=== PATIENT | female | born 1940 | race Caucasian/White ===

== ENCOUNTER → 2018-01-27 | Outpatient (CLI) | payer MEDICARE, OTHER ==
[~2018-01-27] MED LIST: AMITIZA8 MCG PO; ASPIR 8181 MG PO; CENTRUM SILVER1 EAC1 PO; CENTRUM SILVER1 EAC3 PO; CITALOPRAM HBR20 MG PO; CITRACAL + D E1 EACH PO; CITRACAL D + H1 EACH PO; CLARITIN10 MG PO; CO Q-10 100 MG1 EACH PO; CO Q-10200 MG PO; COSAMIN ASU CA1 EACH PO; CYANOCOBAL1000 MCG/M IM; DEXILANT60 MG PO; FISH OIL 1,0001 EAC1 PO; FISH OIL 1,0001 EAC2 PO; ISOSORBIDE MONO30 MG PO; LEVOTHYROXINE100 MCG PO; LIPITOR10 MG PO; LORATADINE10 MG PO; LOSARTAN-HCTZ1 EACH PO; LYRICA PO; LYRICA50 MG PO; METOPROLOL SUCC25 MG PO; METRONIDAZOLE70 GM TP; NAPROXEN500 MG PO; NEXIUM40 MG PO; NORCO 7.5-3251 EACH PO; NYSTATIN-TRIAMC15 G1 TD; PLAVIX75 MG PO; PREMARIN0.3 MG PO; TRICOR PO; TRICOR145 MG PO; VITAMIN D31000 UNIT PO; VITAMIN D32000 UNI1 PO; VITAMIN E100 UNI1 PO
--- NOTE | 2018-01-27 13:09 | Diagnostic Imaging Report ---
EXAMINATION: PA and lateral views of the chest. COMPARISON: None CLINICAL HISTORY: Cough, pneumonia DISCUSSION: Lines/tubes: None. Lungs: The lungs are well inflated and clear. No pneumonia or pulmonary edema. Pleura: There is no pleural effusion or pneumothorax. Heart and mediastinum: The cardiomediastinal silhouette is normal. Bones and soft tissues: No acute bony abnormalities. IMPRESSION: No acute cardiopulmonary abnormalities. Signed by: Dr. Arias Saucedo M.D. on 01/27/2018 1:05 PM
== END ==
LOC: RAD 12:13
PROVIDERS: ATTEND Internal Medicine
DX: J18.9 Pneumonia, unspecified organism (principal)
CPT/HCPCS: 71046

== ENCOUNTER 2018-10-07 14:34 | Observation (INO) | payer MEDICARE, OTHER ==
[~2018-10-07] VITALS: Ht 160 cm; Wt 88.0 kg
--- OUTSIDE RECORDS SUMMARY | 2018-10-07 14:38 | XMS REPORT | Continuity of Care Document ---
Author Author [employer] Address Unknown Phone Unavailable Care Team Providers Care Brineyard Supervisor Name Role Phone [employer] Unavailable Unavailable Problems Problem Status Onset Date Classification Date Reported Comments Source Abnormal EKG Active Problem 02/06/2018 Salvador Anderson Hypertensive heart disease without heart failure Active Problem 02/06/2018 Salvador Anderson Hypothyroidism Active Problem 02/06/2018 Salvador Anderson Degenerative joint disease of low back Active Problem 02/06/2018 Salvador Anderson Atherosclerosis of [place] coronary artery of [place] heart with angina pectoris Active Problem 02/06/2018 Salvador Anderson Patient unable to exercise Active Problem 02/06/2018 Salvador Anderson Stented coronary artery Active Problem 02/06/2018 Salvador Anderson Non morbid obesity due to excess calories Active Problem 02/06/2018 Salvador Anderson Edema of both legs Active Problem 02/06/2018 Salvador Anderson Encounter for pre-operative cardiovascular clearance Active Problem 02/06/2018 Salvador Anderson Hypercholesteremia Active Problem 02/06/2018 Salvador Anderson CAD in [place] artery Active Problem 02/06/2018 Salvador Anderson Exertional dyspnea Active Problem 02/06/2018 Salvador Anderson GERD Active Problem 02/06/2018 Salvador Anderson History of PTCA Active Problem 07/04/2015 Salvador Anderson Hypercholesteremia Active Problem 07/04/2015 Salvador Anderson Medications Medication Details Route Status Patient Instructions Ordering Provider Order Date Source Clopidogrel Bisulfate 1 tablet Orally Active 75 MG Orally daily Justin Anderson Metoprolol Succinate ER 1 tablet Orally Active 25 MG Orally Once a day Justin Anderson Allergies, Adverse Reactions, Alerts No Known Medication Allergies Immunizations No Data Provided for This Section Results No Data Provided for This Section Pathology Reports No Data Provided for This Section Diagnostic Reports No Data Provided for This Section Consultation Notes No Data Provided for This Section Discharge Summaries No Data Provided for This Section History and Physicals No Data Provided for This Section Vital Signs No Data Provided for This Section Encounters Location Location Details Encounter Type Encounter Number Reason For Visit Attending Provider ADM Date DC Date Status Source Salvador Anderson MD PA Unknown [id number] 07/03/2015 07/03/2015 Salvador Anderson Procedures No Data Provided for This Section Assessment and Plan No Data Provided for This Section Plan of Care No Data Provided for This Section Social History Social History Date Source Social History ElementQualifiersDate Reported Smoking . Status Never Smoker May 15, 2015 Alcohol Use No. May 15, 2015 Alcohol Screening: No. Did you have a drink containing alcohol in the past year?: No, Points: 0, Interpretation: Negative May 15, 2015 Marital Status: . May 15, 2015 Do you drink alcohol? No. 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
--- OUTSIDE RECORDS SUMMARY | 2018-10-07 14:39 | XMS REPORT ---
Author Author Salvador Anderson Organization [employer] Address Unknown Phone Unavailable Care Team Providers Care Welder Apprentice Name Role Phone Salvador Anderson CP Unavailable Encounters Encounter Location Date Unknown Salvador Anderson MD PA July 03, 2015 Problems Problem Type Condition ICD-9 Code Onset Dates Condition Status Problem Stented coronary artery Z95.5 Active Problem Hypothyroidism E03.9 Active Problem Non morbid obesity due to excess calories E66.09 Active Problem Exertional dyspnea R06.09 Active Problem History of PTCA Z98.61 Active Problem CAD in [place] artery I25.10 Active Problem Hypercholesteremia E78.0 Active Problem GERD (gastroesophageal reflux disease) K21.9 Active Problem Abnormal EKG R94.31 Active Problem Hypertensive heart disease without heart failure I11.9 Active Medications Medication Code System Code Instructions Start Date End Date Status Dosage Metoprolol Succinate ER MEDISPAN [address]-74 25 MG Orally Once a day Active 1 tablet Social History Social History Element Qualifiers Date Reported Smoking . Status Never Smoker May 15, 2015 Alcohol Use No. May 15, 2015 Alcohol Screening: No. Did you have a drink containing alcohol in the past year?: No, Points: 0, Interpretation: Negative May 15, 2015 Marital Status: . May 15, 2015 Do you drink alcohol? No. 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
--- OUTSIDE RECORDS SUMMARY | 2018-10-07 14:39 | XMS REPORT ---
Author Author Salvador Anderson Organization [employer] Address Unknown Phone Unavailable Care Team Providers Care Auto Body Estimator Name Role Phone Salvador Anderson CP Unavailable Allergies No Known Allergies Problems Problem Type Condition Code Onset Dates Condition Status Problem Abnormal EKG R94.31 Active Problem Hypertensive heart disease without heart failure I11.9 Active Problem Hypothyroidism E03.9 Active Problem Degenerative joint disease of low back M47.9 Active Problem Atherosclerosis of [place] coronary artery of [place] heart with angina pectoris I25.119 Active Problem Patient unable to exercise Z78.9 Active Problem Stented coronary artery Z95.5 Active Problem Non morbid obesity due to excess calories E66.09 Active Problem Edema of both legs R60.0 Active Problem Encounter for pre-operative cardiovascular clearance Z01.810 Active Problem Hypercholesteremia E78.00 Active Problem CAD in [place] artery I25.10 Active Problem Exertional dyspnea R06.09 Active Problem GERD (gastroesophageal reflux disease) K21.9 Active Medications No Known Medications Results No Known Results Summary Purpose [employer] Submission
--- OUTSIDE RECORDS SUMMARY | 2018-10-07 14:39 | XMS REPORT ---
Author Author Salvador Anderson Organization [employer] Address Unknown Phone Unavailable Care Team Providers Care Component Inspector Name Role Phone Salvador Anderson CP Unavailable Allergies No Known Allergies Problems Problem Type Condition Code Onset Dates Condition Status Problem Abnormal EKG R94.31 Active Problem Hypertensive heart disease without heart failure I11.9 Active Problem Hypothyroidism E03.9 Active Problem Degenerative joint disease of low back M47.9 Active Problem Atherosclerosis of [place] coronary artery of [place] heart with angina pectoris I25.119 Active Problem Patient unable to exercise Z78.9 Active Problem Stented coronary artery Z95.5 Active Problem Non morbid obesity due to excess calories E66.09 Active Problem Edema of both legs R60.0 Active Problem Encounter for pre-operative cardiovascular clearance Z01.810 Active Problem Hypercholesteremia E78.00 Active Problem CAD in [place] artery I25.10 Active Problem Exertional dyspnea R06.09 Active Assessment Atherosclerosis of [place] coronary artery of [place] heart with angina pectoris I25.119 Active Problem GERD (gastroesophageal reflux disease) K21.9 Active Medications Medication Code System Code Instructions Start Date End Date Status Dosage Clopidogrel Bisulfate [facility] [id number] 75 MG Orally daily Active 1 tablet Results No Known Results Summary Purpose [employer] Submission
[2018-10-07] MEDS ORDERED: ASPIRIN 81 MG CHEW TAB PO STA (14:53)
[2018-10-07] MEDS ORDERED: ONDANSETRON HCL INJ 2MG/ML 2ML 2 MG/ML VIAL IV STA (14:53)
[2018-10-07] MEDS ORDERED: MORPHINE SULFATE 2 MG/ML SYR 1ML IV STA (14:53)
[2018-10-07] MEDS ORDERED: NITROGLYCERIN 2% OINT 1 GM PKT TOP ONE (15:00)
[2018-10-07] MEDS ORDERED: MORPHINE SULFATE INJ 4 MG/ML INJ 1ML IV ONE (15:15)
[2018-10-07 15:32] LABS: BASOPHILS # (AUTO) 0.1 (0.0-0.1); BASOPHILS % 1.1 % (0.0-1.0); EOSINOPHILS # (AUTO) 0.3 (0.0-0.4); EOSINOPHILS % 2.9 % (0.0-6.0); HEMOGLOBIN 14.5 g/dL (12.0-16.0); LYMPHOCYTES # (AUTO) 3.2 (1.0-3.2); LYMPHOCYTES % 33.6 % (18.0-39.1); MEAN CORPUSCULAR HEMOGLOBIN 28.2 pg (28-32); MEAN CORPUSCULAR VOLUME 85.6 fL (81-99); MONOCYTES # (AUTO) 0.6 (0.2-0.8); MONOCYTES % 6.6 % (4.4-11.3); NEUTROPHILS # (AUTO) 5.2 (2.1-6.9); NEUTROPHILS % 55.4 % (38.7-80.0); PLATELET COUNT 262 x10e3/uL (140-360); RED BLOOD COUNT 5.14 x10e6/uL (3.6-5.1); RED CELL DISTRIBUTION WIDTH 13.1 % (11.7-14.4)
[2018-10-07 15:42] LABS: INR 0.86; PROTHROMBIN TIME 12.2 seconds (11.9-14.5)
[2018-10-07 15:43] LABS: PARTIAL THROMBOPLASTIN TIME 29.1 seconds (23.8-35.5)
[2018-10-07 15:44] LABS: BILIRUBIN,URINE NEGATIVE (NEGATIVE); CLARITY,URINE CLEAR (CLEAR); COLOR,URINE YELLOW (YELLOW); KETONES,URINE NEGATIVE (NEGATIVE); LEUKOCYTE ESTERASE ,URINE SMALL (NEGATIVE); NITRITE,URINE NEGATIVE (NEGATIVE); PROTEIN,URINE DIPSTICK NEGATIVE (NEGATIVE); URINE UROBILINOGEN 0.2 mg/dL (0.2 - 1)
[2018-10-07 15:52] LABS: ALANINE AMINOTRANSFERASE 29 IU/L (0-55); ALBUMIN 3.9 g/dL (3.5-5.0); ALBUMIN/GLOBULIN RATIO 1.4 (0.8-2.0); ALKALINE PHOSPHATASE 101 IU/L (40-150); ANION GAP 14.9 mmol/L (8-16); BLOOD UREA NITROGEN 12 mg/dL (7-26); BUN/CREATININE RATIO 14 (6-25); CALCIUM 9.7 mg/dL (8.4-10.2); CARBON DIOXIDE 25 mmol/L (22-29); CHLORIDE 105 mmol/L (98-107); CREATINE KINASE 53 IU/L (29-168); CREATININE, SERUM 0.86 mg/dL (0.57-1.11); EST GLOMERULAR FILTRATION RATE > 60 ML/MIN (60-); GLUCOSE 125 mg/dL (74-118); MAGNESIUM 1.9 MG/DL (1.3-2.1); POTASSIUM 3.9 mmol/L (3.5-5.1); SODIUM 141 mmol/L (136-145)
[2018-10-07 15:54] LABS: BACTERIA,URINE FEW /HPF; EPITHELIAL CELLS,URINE FEW /LPF; RBC,URINE 0-5 /HPF (0-5)
[2018-10-07] MEDS ORDERED: VITAMIN D32000 UNIT PO (15:54)
[2018-10-07] MEDS ORDERED: COQ-10100 MG PEG (15:54)
[2018-10-07] MEDS ORDERED: VITAMIN B-121000 MCG PO (15:54)
[2018-10-07] MEDS ORDERED: AMITIZA24 MCG PO (15:54)
[2018-10-07] MEDS ORDERED: CLOPIDOGREL75 MG PO (15:54)
[2018-10-07] MEDS ORDERED: LYRICA50 MG PO (15:55)
[2018-10-07] MEDS ORDERED: ONDANSETRON HCL INJ 2MG/ML 2ML 2 MG/ML VIAL IV PRN (16:15)
[2018-10-07] MEDS ORDERED: MORPHINE SULFATE 2 MG/ML SYR 1ML IV PRN (16:15)
--- OUTSIDE RECORDS SUMMARY | 2018-10-07 16:28 | XMS REPORT | Continuity of Care Document ---
Author Author [employer] Address Unknown Phone Unavailable Care Team Providers Care Machine Cutter Name Role Phone [employer] Unavailable Unavailable Problems Problem Status Onset Date Classification Date Reported Comments Source Abnormal EKG Active Problem 02/06/2018 Salvador Anderson Hypertensive heart disease without heart failure Active Problem 02/06/2018 Salvador Anderson Hypothyroidism Active Problem 02/06/2018 Salvador Anderson Degenerative joint disease of low back Active Problem 02/06/2018 Salvador Anderson Atherosclerosis of [place] coronary artery of [place] heart with angina pectoris Active Problem 02/06/2018 [...] Active Problem 02/06/2018 Salvador Anderson CAD in [place] artery Active Problem 02/06/2018 Salvador Anderson Exertional [...] Status Source Salvador Anderson MD PA Unknown [id number] 07/03/2015 07/03/2015 Salvador Anderson Procedures No Data [...]
[2018-10-07] MEDS: FAMOTIDINE 20 MG/2 ML VIAL IV SCH (16:29)
[2018-10-07] MEDS ORDERED: MORPHINE SULFATE INJ 4 MG/ML INJ 1ML IV PRN (16:30)
--- NOTE | 2018-10-07 16:46 | Diagnostic Imaging Report ---
EXAMINATION: CHEST SINGLE (PORTABLE) INDICATION: COMPARISON: FINDINGS: TUBES and LINES: EKG leads overlie the thorax. LUNGS: The lung volumes are low. No focal consolidation or pulmonary edema. PLEURA: No pleural effusion or pneumothorax. HEART AND MEDIASTINUM: The cardiomediastinal silhouette is normal in size and contour. BONES AND SOFT TISSUES: No acute fracture or dislocation. UPPER ABDOMEN: No free air under the diaphragm. IMPRESSION: Low lung volumes. No focal consolidation or pulmonary edema. Signed by: Rosina Mota MD on 10/07/2018 4:43 PM
[2018-10-07] MEDS ORDERED: METOPROLOL TARTRATE 25 MG TAB PO SCH (17:00)
[2018-10-07 17:49] VITALS: BP 178/67
[2018-10-07 17:53] VITALS: BP 178/67
--- NOTE | 2018-10-07 18:06 | NUR ---
patient received from ER via stretcher. see admit assess. sinus rhythm on monitor. family at BS. BP elevated and MD aware. no complaints or signs of distress.
[2018-10-07] MEDS ORDERED: ENOXAPARIN SOD INJ 40 MG/0.4 ML SYR SC ONE (18:45)
--- NOTE | 2018-10-07 18:56 | Consultation ---
DATE OF CONSULTATION: 10/07/2018 Cardiac Consultation REASON FOR CONSULTATION: Weakness and chest pain. HISTORY: Delightful 77-year-old lady with known history of coronary artery disease status post PCI to the right coronary artery in April 2013. The patient is also known to have hypertension, hypercholesterolemia, hypothyroidism, GERD symptoms. The patient does have also weakness, which is unexplained. The patient is followed now by Dr. Eisenberg, she used to see Dr. Mejia in the past. She came to this institution just coming back from a travel by car from [place]. During the travel, she stopped several times and she moved. She is here now for the last few days. It seems that exhausted her, she is unable to do much, she is staying in bed and she is very weak since Friday. She decided to come to the emergency room because of that, and she had also an episode of very sharp pain. There is no pleuritic nor pericarditic component of chest pain. There is no cough. There was some shortness of breath. Her D-dimer upon arrival to the emergency room, it is normal. Regarding her chest pain, it is very vague in characteristic, sharp. HOME MEDICATIONS: Include Plavix 75 mg a day, metoprolol succinate 50 mg a day, losartan/hydrochlorothiazide 50/12.5 one tablet a day, levothyroxine 75 mcg a day, Dexilant 60 mg a day, CoQ10 200 mg a day, Lyrica 50 mg a day, vitamin B12 1000 mg weekly, loratadine, and other p.r.n. medication. ALLERGIES: THE PATIENT IS INTOLERANT TO ALL STATINS. SHE IS ALSO ALLERGIC TO SHELLFISH AND ROBAXIN. PAST MEDICAL HISTORY: 1. PCI in April 2013 to the right coronary artery using 2.25 x 22 Resolute Integrity stent. 2. Repeated catheterization in September 2014 showed patency of stent. 3. Hypertension. 4. Hypercholesterolemia, hypertriglyceridemia. 5. Hypothyroidism. 6. GERD. 7. Hiatal hernia. 8. Hysterectomy. 9. CT head in September 2013 showed possible microadenoma in the sella. 10. Lumbar spine surgery. 11. Hysterectomy. 12. Cholecystectomy. 13. Appendectomy. 14. Bilateral lumpectomy. 15. Torn meniscus surgery. 16. Spinal fusion. 17. Anal fissure and hemorrhoid surgery. 18. Knee surgery. SOCIAL HISTORY: She is . She is nonsmoker and non-alcohol drinker. FAMILY HISTORY: Father of cancer at age 84. Mother at age 73. She had bypass surgery at age 60. She was diabetic, hypertensive. Three brothers, one of them had pancreatitis and another one had pericarditis. No sister. One healthy son and two healthy daughters. REVIEW OF SYSTEMS: GENERAL: No fever, no chills. HEENT: Remarkable for headache and vertigo. PULMONARY: As per acute illness. CARDIAC: As per acute illness. GI: Heartburn, indigestion. No hematemesis. No melena. HEMATOLOGY: Easy bruising but no bleeding. : Increased frequency of urination. MUSCULOSKELETAL: Back pain. PERIPHERAL VASCULAR: Varicose veins. NEUROLOGIC: Back pain, poor balance tendency to fall, unexplained weakness. PHYSICAL EXAMINATION: VITAL: Height of 5 feet 3 inches, weight of 190 pounds, blood pressure 130/80, heart rate of 70, respiratory rate of 18. HEENT: Pupils are reactive. NECK: No elevation of jugular venous pulsation. CHEST: Clear to auscultation and percussion. HEART: PMI 5th left intercostal space. Normal first and second heart sounds. ABDOMEN: Soft with good bowel sounds. No abdominal bruits. EXTREMITIES: No signs of deep venous thrombosis. Good distal pulses. NEUROLOGIC: Nonfocal. IMPRESSION AND PLAN: 1. Vague chest pain. 2. Patient known with coronary artery disease status post PCI in the past. 3. Hypertension. 4. Hypercholesterolemia. 5. Hyperlipidemia. 6. Hypothyroidism. 7. Unexplained weakness. Differential diagnosis is wide, DVT and PE is high on the list, but the patient's D-dimer is normal and she was to certain extent ambulatory during her travel. But the D-dimer being normal and the patient got allergy to shellfish, so probably we will observe for the time being, serial cardiac enzymes to be done, continuation of beta-blockers and Plavix. Checking her lab in the morning and her EKG and depending on her progress and her symptoms, further steps to be done. All this discussed and explained. Questions are answered. MD RENATA Chambers/JAMES /[id number]
[2018-10-07 19:05] VITALS: BP 160/67
[2018-10-07] MEDS: METOPROLOL SUCCINATE 50 MG TAB XL PO SCH (19:26)
[2018-10-07 19:27] VITALS: BP 176/74
[2018-10-07 21:00] VITALS: BP 176/74
[2018-10-08 00:01] VITALS: BP 127/55
[2018-10-08 00:43] LABS: CREATINE KINASE MB 1.5 ng/mL (0-5.0)
[2018-10-08 04:00] VITALS: BP 116/56
[2018-10-08 05:40] LABS: BASOPHILS # (AUTO) 0.1 (0.0-0.1); BASOPHILS % 0.9 % (0.0-1.0); EOSINOPHILS # (AUTO) 0.3 (0.0-0.4); EOSINOPHILS % 3.2 % (0.0-6.0); HEMATOCRIT 37.6 % (34.2-44.1); HEMOGLOBIN 12.2 g/dL (12.0-16.0); LYMPHOCYTES # (AUTO) 3.2 (1.0-3.2); LYMPHOCYTES % 33.2 % (18.0-39.1); MEAN CORPUSCULAR HEMOGLOBIN 28.5 pg (28-32); MEAN CORPUSCULAR HGB CONC 32.4 g/dL (31-35); MEAN CORPUSCULAR VOLUME 87.9 fL (81-99); MONOCYTES # (AUTO) 0.8 (0.2-0.8); MONOCYTES % 8.1 % (4.4-11.3); NEUTROPHILS # (AUTO) 5.2 (2.1-6.9); NEUTROPHILS % 54.3 % (38.7-80.0); PLATELET COUNT 224 x10e3/uL (140-360); RED BLOOD COUNT 4.28 x10e6/uL (3.6-5.1); RED CELL DISTRIBUTION WIDTH 13.3 % (11.7-14.4)
[2018-10-08 05:53] LABS: ALANINE AMINOTRANSFERASE 25 IU/L (0-55); ALBUMIN 3.2 g/dL (3.5-5.0); ALBUMIN/GLOBULIN RATIO 1.5 (0.8-2.0); ALKALINE PHOSPHATASE 79 IU/L (40-150); ANION GAP 11.7 mmol/L (8-16); BLOOD UREA NITROGEN 15 mg/dL (7-26); BUN/CREATININE RATIO 17 (6-25); CALCIUM 9.1 mg/dL (8.4-10.2); CARBON DIOXIDE 28 mmol/L (22-29); CHLORIDE 105 mmol/L (98-107); CHOL/HDL RATIO 5.6 (3.0-3.6); CHOLESTEROL 186 MD/DL (0-199); EST GLOMERULAR FILTRATION RATE > 60 ML/MIN (60-); GLUCOSE 123 mg/dL (74-118); HDL CHOLESTEROL 33 MG/DL (40-60); LDL CHOLESTEROL 78 MG/DL (60-130); POTASSIUM 4.7 mmol/L (3.5-5.1); SODIUM 140 mmol/L (136-145); TRIGLYCERIDES 376 MG/DL (0-149)
[2018-10-08 07:59] VITALS: BP 129/63
[2018-10-08 08:16] LABS: CREATINE KINASE MB 1.7 ng/mL (0-5.0)
[2018-10-08 08:40] VITALS: BP 129/63
[2018-10-08] MEDS: METOPROLOL SUCCINATE 50 MG TAB XL PO SCH (08:40)
[2018-10-08] MEDS: FAMOTIDINE 20 MG/2 ML VIAL IV SCH (08:40)
[2018-10-08] MEDS ORDERED: CLOPIDOGREL BISULFATE 75 MG TAB PO SCH (09:00)
[2018-10-08] MEDS ORDERED: ASPIRIN 81 MG ENTERIC COATED PO SCH (09:00)
[2018-10-08 12:00] VITALS: BP 116/49
--- NOTE | 2018-10-08 15:43 | NUR ---
PATIENT DISCHARGE HOME- PATIENT OFF THE UNIT AT 1537 PER WHEELCHAIR ACCOMPANIED BY RN TO THE FRONT LOBBY. PATIENT IS IN STABLE CONDITION WITH NO S/S OF RESPIRATORY DISTRESS. NO PAIN VOICED. IV REMOVED WITH TIP INTACT. DISCHARGE TEACHING AND INSTRUCTIONS GIVEN TO THE PATIENT. ALL PERSONAL ITEMS TAKEN WITH THE PATIENT AND HER .
[2018-10-08] MEDS ORDERED: ENOXAPARIN SOD INJ 40 MG/0.4 ML SYR SC SCH (17:00)
--- NOTE | 2018-11-13 23:49 | Discharge Summary ---
CHIEF COMPLAINT: Bilateral lower chest pain associated with shortness of breath. FINAL DIAGNOSES: Weakness, chest pain, hypertension, and hyperlipidemia. HOSPITAL COURSE: A 77-year-old female with known history of hypertension, hyperlipidemia, GERD, chronic back pain, brought to the ER with a several-hour history of bilateral lower chest pain associated with shortness of breath. No diaphoresis. No nausea or vomiting. Does complain of fatigue. Workup evaluated in the emergency room. Studies were reviewed. Conclusions were made. Admission was made for evaluation of atypical chest pain. Chronic pain syndrome, hyperlipidemia, and hypertension. We will be monitoring cardiac enzymes. We requested Cardiology follow. The patient was admitted to [facility] and she was undergoing care and evaluation. She was also receiving cardiac review with Dr. Anderson regarding her complaints and with his evaluation, his impression was vague chest pain. The patient now with coronary artery disease, status post PCI in the past, hypertension, hypercholesterolemia, hyperlipidemia, hypothyroidism, unexplained weakness. He states that the differential diagnosis is wide, DVT and PE is high on the list, but the patient's D-dimer is normal. We will be checking serial cardiac enzymes. Continue beta-blockers and platelets. Depending on her progress and her symptoms, the patient can be discharged. The patient's studies returned uneventful and unremarkable and she was cleared for discharge. IMAGING: Chest x-ray shows low lung volumes. No focal consolidation or pulmonary edema. Urine cultures are unremarkable. LABORATORY STUDIES: CBC was unremarkable. Urinalysis showing 6 to 10 wbc's per high-power field. Chemistries reveal stable electrolytes, stable kidney functions, initial glucose 125. First set of cardiac enzymes were normal. Lipid panel showing triglycerides of 376, cholesterol 186, TSH 1.333. Followup chemistry shows second and third set of cardiac enzymes to be normal. Followup glucose 123. The patient was stable and was cleared for discharge. She will be discharged home in stable condition. She will continue on a regular diet. No equipments or supplies are necessary. No drains or Spicer was needed. Activity level as directed by me as well as by Dr. Anderson. She will be following back up with her PCP within 7 to 10 days. She will be continuing on calcitriol plus vitamin D ER one tablet daily, vitamin D3 of 2000 units p.o. daily, clopidogrel 75 mg p.o. at bedtime, vitamin B12 of 1000 mcg p.o. daily, Dexilant 30 mg p.o. daily, levothyroxine sodium 100 mcg daily, loratadine 10 mg daily, losartan/hydrochlorothiazide 100/25 mg p.o. daily, Amitiza 8 mcg p.o. b.i.d., metoprolol succinate 50 mg p.o. at bedtime, Centrum Silver tablet one tablet daily, Lyrica 50 mg p.o. b.i.d., CoQ10 200 mg daily. Any questions or concerns that she might have, she will be contacting her PCP. Dictated by KJ Gonzalez MD KERON Maddox/JAMES /[id number]
== END 2018-10-08 15:37 | disposition home or self-care (01) ==
LOC: ER 14:34 → ERHOLD 16:10 → IMCU 17:30
DX: R07.2 Precordial pain (principal); R06.00 Dyspnea, unspecified; Z88.8 Allergy status to other drugs, medicaments and biological substances; Z91.013 Allergy to seafood; I10 Essential (primary) hypertension; E78.5 Hyperlipidemia, unspecified; K21.9 Gastro-esophageal reflux disease without esophagitis; G43.909 Migraine, unspecified, not intractable, without status migrainosus; Z82.49 Family history of ischemic heart disease and other diseases of the circulatory system; G89.4 Chronic pain syndrome; I25.10 Atherosclerotic heart disease of native coronary artery without angina pectoris; Z95.5 Presence of coronary angioplasty implant and graft; E03.9 Hypothyroidism, unspecified; R53.1 Weakness; Z80.9 Family history of malignant neoplasm, unspecified; Z83.3 Family history of diabetes mellitus
CPT/HCPCS: 36415 ×2; 71045; 80053 ×2; 80061; 81001; 82550 ×2; 82553 ×2; 83735; 84443; 84484 ×2; 85025 ×2; 85379; 85610; 85730; 87086; 93005; 99284; G0378 ×2; J1650; J2270; J2405

== ENCOUNTER 2019-01-08 09:28 | Inpatient (IN) | payer MEDICARE, OTHER ==
[~2019-01-08] VITALS: Ht 160 cm; Wt 86.6 kg
[~2019-01-08 09:28] MED LIST changes: +AMITIZA24 MCG PO; +CLOPIDOGREL75 MG PO; +COQ-10100 MG PEG; +VITAMIN B-121000 MCG PO; +VITAMIN D32000 UNIT PO
[2019-01-08] MEDS ORDERED: SODIUM CHLORIDE 0.9% 1000ML 1,000 ML IV ONE (10:00)
[2019-01-08] MEDS ORDERED: DICYCLOMINE HCL 20 MG/2 ML VIAL IM ONE (10:00)
[2019-01-08] MEDS ORDERED: ONDANSETRON HCL INJ 2MG/ML 2ML 2 MG/ML VIAL IV NR (10:30)
[2019-01-08] MEDS ORDERED: MORPHINE SULFATE INJ 4 MG/ML INJ 1ML IV NR (10:30)
[2019-01-08 10:33] LABS: BASOPHILS # (AUTO) 0.1 (0.0-0.1); BASOPHILS % 0.7 % (0.0-1.0); EOSINOPHILS # (AUTO) 0.1 (0.0-0.4); EOSINOPHILS % 0.7 % (0.0-6.0); HEMATOCRIT 43.8 % (34.2-44.1); HEMOGLOBIN 14.1 g/dL (12.0-16.0); LYMPHOCYTES # (AUTO) 4.1 (1.0-3.2); LYMPHOCYTES % 20.8 % (18.0-39.1); MEAN CORPUSCULAR HEMOGLOBIN 27.5 pg (28-32); MEAN CORPUSCULAR HGB CONC 32.2 g/dL (31-35); MEAN CORPUSCULAR VOLUME 85.5 fL (81-99); MONOCYTES # (AUTO) 1.3 (0.2-0.8); MONOCYTES % 6.4 % (4.4-11.3); NEUTROPHILS # (AUTO) 13.9 (2.1-6.9); NEUTROPHILS % 70.9 % (38.7-80.0); PLATELET COUNT 338 x10e3/uL (140-360); RED BLOOD COUNT 5.12 x10e6/uL (3.6-5.1); RED CELL DISTRIBUTION WIDTH 12.8 % (11.7-14.4)
[2019-01-08] MEDS ORDERED: DIATRIZOATE MEGL/DIATRIZOA SOD 30 ML BTL PO ONE (10:39)
[2019-01-08 10:42] LABS: INR 0.93
[2019-01-08 10:49] LABS: ALBUMIN 3.4 g/dL (3.5-5.0); ALBUMIN/GLOBULIN RATIO 1.1 (0.8-2.0); ANION GAP 15.2 mmol/L (8-16); CALCIUM 9.4 mg/dL (8.4-10.2); CREATININE, SERUM 0.91 mg/dL (0.57-1.11); POTASSIUM 4.2 mmol/L (3.5-5.1)
--- NOTE | 2019-01-08 10:49 | Diagnostic Imaging Report ---
EXAMINATION: CHEST SINGLE (PORTABLE) INDICATION: Abdominal pain COMPARISON: None FINDINGS: LINES/TUBES:EKG leads overlie the chest. LUNGS:The lungs are moderately inflated. There is left basilar opacity partially silhouetting the left [place] diaphragm. PLEURA:No pleural effusion or pneumothorax. MEDIASTINUM:The cardiomediastinal silhouette appears normal in size and shape. Atherosclerotic calcifications of the thoracic aorta. BONES/SOFT TISSUES:No acute osseous injury. ABDOMEN:No free air under the diaphragm. IMPRESSION: Patchy opacity at the left lung base, most likely subsegmental atelectasis. Signed by: Rosina Mota MD on 01/08/2019 10:46 AM
--- NOTE | 2019-01-08 11:20 | NUR ---
Pt finished drinking her contrast
[2019-01-08 11:25] LABS: CREATINE KINASE MB 2.7 ng/mL (0-5.0)
[2019-01-08 12:50] LABS: BILIRUBIN,URINE NEGATIVE (NEGATIVE); CLARITY,URINE CLEAR (CLEAR); COLOR,URINE YELLOW (YELLOW); KETONES,URINE NEGATIVE (NEGATIVE); LEUKOCYTE ESTERASE ,URINE NEGATIVE (NEGATIVE); NITRITE,URINE NEGATIVE (NEGATIVE); PROTEIN,URINE DIPSTICK NEGATIVE (NEGATIVE); URINE UROBILINOGEN 0.2 mg/dL (0.2 - 1)
--- NOTE | 2019-01-08 12:57 | Diagnostic Imaging Report ---
EXAM: CT Abdomen and Pelvis WITH intravenous contrast INDICATION: Abdominal pain, rectal bleeding COMPARISON: None. TECHNIQUE: Abdomen and pelvis were scanned utilizing a multidetector helical scanner from the lung base to the pubic symphysis after administration of IV contrast. Coronal and sagittal reformations were obtained. Routine protocol was performed. Scan was performed during portal venous phase. IV CONTRAST: 100mL of Isovue 370 ORAL CONTRAST: Gastrografin RADIATION DOSE: Total DLP: 761.5 mGy*cm Dose modulation, iterative reconstruction, and/or weight based adjustment of the mA/kV was utilized to reduce the radiation dose to as low as reasonably achievable. FINDINGS: LOWER THORAX: Mild bibasilar dependent subsegmental atelectasis. HEPATOBILIARY: Diffuse hepatic steatosis. No focal liver lesion. Absent gallbladder. SPLEEN: No splenomegaly. PANCREAS: No focal masses or ductal dilatation. ADRENALS: No adrenal nodules. KIDNEYS/URETERS: No hydronephrosis, stones, or solid mass lesions. PELVIC ORGANS/BLADDER: Status post hysterectomy. PERITONEUM / RETROPERITONEUM: No free air or fluid. LYMPH NODES: No lymphadenopathy. VESSELS: Scattered atherosclerotic calcifications of the nonaneurysmal abdominal aorta and major branches. GI TRACT: Mild sigmoid colon diverticulosis without CT evidence of diverticulitis. There is mild thickening of the descending and sigmoid colon wall with areas of mild adjacent fat stranding, not associated with diverticuli. No free air or focal fluid collection. BONES AND SOFT TISSUES: No acute osseous injury. Degenerative changes of the visualized spine. Postoperative changes of lumbar fusion at L4-5. No suspicious lytic or blastic lesions. IMPRESSION: Mild thickening of the descending and sigmoid colon with areas of mild adjacent fat stranding not associated with diverticuli. This is nonspecific and can be seen with colitis of infectious, inflammatory and ischemic etiologies. Mild sigmoid diverticulosis without associated wall thickening or inflammatory changes to suggest diverticulitis. Diffuse hepatic steatosis. Signed by: Rosina Mota MD on 01/08/2019 12:54 PM
[2019-01-08] MEDS ORDERED: DIPHENHYDRAMINE HCL INJ 50 MG/ML VIAL IV ONE (13:00)
[2019-01-08] MEDS ORDERED: METHYLPREDNISOLONE SOD SUCC 125 MG/2ML VIAL IV ONE (13:00)
[2019-01-08] MEDS ORDERED: METHYLPREDNISOLONE SOD SUCC 125 MG/2ML VIAL ONE (13:01)
[2019-01-08 13:06] LABS: BACTERIA,URINE RARE /HPF; EPITHELIAL CELLS,URINE RARE /LPF; WBC,URINE (MAN) 0-5 /HPF (0-5)
[2019-01-08] MEDS ORDERED: SODIUM CHLORIDE 0.9% 1000ML 1,000 ML IV SCH (13:13)
[2019-01-08] MEDS ORDERED: LEVOFLOXACIN 750MG/D5W 150ML 150 ML IV SCH (13:15)
[2019-01-08] MEDS ORDERED: PIPER-TAZ 3.375 GM 50 ML IV SCH (13:15)
[2019-01-08] MEDS ORDERED: SODIUM CHLORIDE FLUSH 10 ML SYR INJ PRN (13:15)
[2019-01-08] MEDS ORDERED: MORPHINE SULFATE 2 MG/ML SYR 1ML IV PRN (13:15)
[2019-01-08] MEDS ORDERED: METRONIDAZOLE 500MG/NS 100ML IV SCH (13:30)
--- OUTSIDE RECORDS SUMMARY | 2019-01-08 13:32 | XMS REPORT ---
Author Author [facility] Address Unknown Phone Unavailable Care Team Providers Care Blanket Folder Name Role Phone Laura JETT Unavailable Unavailable SANDOVAL, SOUHEIL Unavailable Unavailable ORAHOOD, MONTE Unavailable Unavailable Problems This patient has no known problems. Allergies, Adverse Reactions, Alerts This patient has no known allergies or adverse reactions. Medications This patient has no known medications. Results Test Description Test Time Test Comments Text Results Atomic Results Result Comments CT ABDOMEN/PELVIS W 2019-01-08 12:36:00 [place] [address] Patient Name: JORDAN LAMBERT MR #: [id number] : 1940 Age/Sex: 78/F Req #: [id number] Adm Physician: Ordered by: CL JETT MD Report #: [id number] Location: ER Room/Bed: Procedure: [id number] CT/CT ABDOMEN/PELVIS W Exam Date: 01/08/19 Exam Time: 1215 REPORT STATUS: Signed EXAM: CT Abdomen and Pelvis WITH intravenous contrast INDICATION: Abdominal pain, rectal bleeding COMPARISON: None. TECHNIQUE: Abdomen and pelvis were scanned utilizing a multidetector helical scanner from the lung base to the pubic symphysis after administration of IV contrast. Coronal and sagittal reformations were obtained. Routine protocol was performed. Scan was performed during portal venous phase. IV CONTRAST: 100mL of Isovue 370 ORAL CONTRAST: Gastrografin RADIATION DOSE: Total DLP: 761.5 mGy*cm Dose modulation, iterative reconstruction, and/or weight based adjustment of the mA/kV was utilized to reduce the radiation dose to as low as reasonably achievable. FINDINGS: LOWER THORAX: Mild bibasilar dependent subsegmental atelectasis. HEPATOBILIARY: Diffuse hepatic steatosis. No focal liver lesion. Absent gallbladder. SPLEEN: No splenomegaly. PANCREAS: No focal masses or ductal dilatation. ADRENALS: No adrenal nodules. KIDNEYS/URETERS: No hydronephrosis, stones, or solid mass lesions. PELVIC ORGANS/BLADDER: Status post hysterectomy. PERITONEUM / RETROPERITONEUM: No free air or fluid. LYMPH NODES: No lymphadenopathy. VESSELS: Scattered atherosclerotic calcifications of the nonaneurysmal abdominal aorta and major branches. GI TRACT: Mild sigmoid colon diverticulosis without CT evidence of diverticulitis. There is mild thickening of the descending and sigmoid colon wall with areas of mild adjacent fat stranding, not associated with diverticuli. No free air or focal fluid collection. BONES AND SOFT TISSUES: No acute osseous injury. Degenerative changes of the visualized spine. Postoperative changes of lumbar fusion at L4-5. No suspicious lytic or blastic lesions. IMPRESSION: Mild thickening of the descending and sigmoid colon with areas of mild adjacent fat stranding not associated with diverticuli. This is nonspecific and can be seen with colitis of infectious, inflammatory and ischemic etiologies. Mild sigmoid diverticulosis without associated wall thickening or inflammatory changes to suggest diverticulitis. Diffuse hepatic steatosis. Signed by: Garrett Lees MD on 01/08/2019 12:54 PM Dictated By: GARRETT LEES MD 1254 Transcribed By: MOSES on 01/08/19 1254 COPY TO: CL JETT MD CHEST SINGLE (PORTABLE) 2019-01-08 10:44:00 [place] [address] Patient Name: JORDAN LAMBERT MR #: [id number] : 1940 Age/Sex: 78/F Req #: [id number] Adm Physician: Ordered by: CL JETT MD Report #: [id number] Location: Room/Bed: Procedure: [id number] DX/CHEST SINGLE (PORTABLE) Exam Date: 01/08/19 Exam Time: 0950 REPORT STATUS: Signed EXAMINATION: CHEST SINGLE (PORTABLE) IND ICATION: Abdominal pain COMPARISON: None FINDINGS: LINES/TUBES:EKG leads overlie the chest. LUNGS:The lungs are moderately inflated. There is left basilar opacity partially silhouetting the left tejas diaphragm. PLEURA:No pleural effusion or pneumothorax. MEDIASTINUM:The cardiomediastinal silhouette appears normal in size and shape. Atherosclerotic calcifications of the thoracic aorta. BONES/SOFT TISSUES:No acute osseous injury. ABDOMEN:No free air under the diaphragm. IMPRESSION: Patchy opacity at the left lung base, most likely subsegmental atelectasis. Signed by: Garrett Lees MD on 01/08/2019 10:46 AM Dictated By: GARRETT LEES MD 1046 Transcribed By: MOSES on 01/08/19 1046 COPY TO: CL JETT MD BREAST ULTRASOUND BILATERAL 2018-12-10 17:04:15 - DIAG MAMM BILATERAL DARIEN CAD DIGITALBILATERAL DIGITAL DIAGNOSTIC MAMMOGRAM 3D/2D WITH CAD: 12/10/2018CLINICAL: Dense breasts. Digital breast tomosynthesis was performed in addition to routine CC and MLO views. Current mammographic images were evaluated by either a Sproxil M-Vu or a Ancestry ImageChecker CAD (computer aided detection system). Comparison is made to exams dated 09/15/2017 mammogram, 09/10/2016 mammogram, and 09/08/2015 mammogram - [facility] The tissue of both breasts is heterogeneously dense. This may lower the sensitivity of mammography. No suspicious mass, architectural distortion, malignant type calcification, or lymph node abnormality detected. INCOMPLETE ASSESSMENT: ADDITIONAL IMAGING EVALUATION RECOMMENDEDBilateral ultrasound pending for additional evaluation. Resume annual screening mammography in one year. - BREAST ULTRASOUND BILATERALULTRASOUND OF BOTH BREASTS AND BOTH AXILLA: 12/10/2018Comparison is made to exams dated 09/15/2017 mammogram, 09/10/2016 [facility], and [facility] Real-time ultrasound of both breasts and both axilla and clinical breast exam were performed. No abnormalities were seen sonographically in either breast or either axilla. Clinical breast exam was unremarkable.IMPRESSION: NEGATIVE There is no sonographic evidence of malignancy. Patient has been informed that she has areas of dense breast tissue that could make it difficult to find a small cancer. A screening mammogram and supplemental ultrasound for dense breast tissue is recommended in 1 year.Margaux Mcdonald M.D. dm/:12/10/2018 1 7:04:15 copy to: Elizabeth Haynes MD, ph: [phone], fax: [phone] Technologist: Anai Berrios , [facility] sent: BIRADS 1-2 Combo FU Letter Mammogram BI-RADS: 0 Indeterminate Ultrasound BI-RADS: 1 Negative DIAG MAMM BILATERAL DARIEN CAD DIGITAL 2018-12-10 17:04:15 - DIAG MAMM BILATERAL DARIEN CAD DIGITALBILATERAL DIGITAL DIAGNOSTIC MAMMOGRAM 3D/2D WITH CAD: 12/10/2018CLINICAL: Dense breasts. Digital breast tomosynthesis was performed in addition to routine CC and MLO views. Current mammographic images were evaluated by either a Sproxil M-Vu or a Ancestry ImageChecker CAD (computer aided detection system). Comparison is made to exams dated 09/15/2017 mammogram, 09/10/2016 mammogram, and 09/08/2015 mammogram - [facility]. The tissue of both breasts is heterogeneously dense. This may lower the sensitivity of mammography. No suspicious mass, architectural distortion, malignant type calcification, or lymph node abnormality detected. INCOMPLETE ASSESSMENT: ADDITIONAL IMAGING EVALUATION RECOMMENDEDBilateral ultrasound pending for additional evaluation. Resume annual screening mammography in one year. - BREAST ULTRASOUND BILATERALULTRASOUND OF BOTH BREASTS AND BOTH AXILLA: 12/10/2018Comparison is made to exams dated 09/15/2017 mammogram, 09/10/2016 [facility]ogram, and 09/08/2015 [facility] - [facility]. Real-time ultrasound of both breasts and both axilla and clinical breast exam were performed. No abnormalities were seen sonographically in either breast or either axilla. Clinical breast exam was unremarkable.IMPRESSION: NEGATIVE There is no sonographic evidence of malignancy. Patient has been informed that she has areas of dense breast tissue that could make it difficult to find a small cancer. A screening mammogram and supplemental ultrasound for dense breast tissue is recommended in 1 year.Margaux Mcdonald M.D. dm/:12/10/2018 1 7:04:15 copy to: Elizabeth Haynes MD, ph: [phone], fax: [phone] Technologist: Anai Berrios , [facility]- FWletter sent: BIRADS 1-2 Combo FU Letter Mammogram BI-RADS: 0 Indeterminate Ultrasound BI-RADS: 1 Negative CHEST SINGLE (PORTABLE) 2018-10-07 16:42:00 [place] [address] Patient Name: JORDAN LAMBERT MR #: [id number] : 1940 Age/Sex: 77/F Req #: [id number] Adm Physician: ZORA SANDOVAL MD Ordered by: BRIAN VILLA MD Report #: [id number] Location: [facility] Room/Bed: [place] [address] Procedure: [id number] DX/CHEST SINGLE (PORTABLE) Exam Date: Exam Time: REPORT STATUS: Signed EXAMINATION: CHEST SINGLE (PORTABLE) INDICATION: COMPARISON: FINDINGS: TUBES and LINES: EKG leads overlie the thorax. LUNGS: The lung volumes are low. No focal consolidation or pulmonary edema. PLEURA: No pleural effusion or pneumothorax. HEART AND MEDIASTINUM: The cardiomediastinal silhouette is normal in size and contour. BONES AND SOFT TISSUES: No acute fracture or dislocation. UPPER ABDOMEN: No free air under the diaphragm. IMPRESSION: Low lung volumes. No focal consolidation or pulmonary edema. Signed by: Garrett Lees MD on 10/07/2018 4:43 PM Dictated By: GARRETT LEES MD 42 Transcribed By: MOSES on 10/07/181642 COPY TO: BRIAN VILLA MD CHEST 2 VIEWS 2018-01-27 13:04:00 [place] [address] Patient Name: JORDAN LAMBERT MR #: [id number] : 1940 Age/Sex: 77/F Req #: [id number] Adm Physician: Ordered by: ELIZABETH HAYNES MD Report #: [id number] Location: [facility] Room/Bed: Procedure: [id number] DX/CHEST 2 VIEWS Exam Date: Exam Time: REPORT STATUS: Signed EXAMINATION: PA and lateral views of the chest. COMPARISON: None CLINICAL HISTORY: Cough, pneumonia DISCUSSION: Lines/tubes: None. Lungs: The lungs are well inflated and clear. No pneumonia or pulmonary edema. Pleura: There is no pleural effusion or pneumothorax. Heart and mediastinum: The cardiomediastinal silhouette is normal. Bones and soft tissues: No acute bony abnormalities. IMPRESSION: No acute cardiopulmonary abnormalities. Signed by: Dr. Sonya Adames M.D. on 01/27/2018 1:05 PM Dictated By: SONYA ADAMES MD 1309 Transcribed By: MOSES on 01/27/18 1300 COPY TO: ELIZABETH HAYNES MD
--- NOTE | 2019-01-08 13:51 | NUR ---
Report to USMAN Ramirez
--- NOTE | 2019-01-08 14:40 | NUR ---
Received patient from ER. Patient in stable condition, no signs of distress or c/o pain at this time. Bed locked and in low position, call light placed within reach. All safety measures in place. Family at bedside. Will continue to monitor.
[2019-01-08] MEDS: METRONIDAZOLE 500MG/NS 100ML 100 ML IV SCH ×2 (15:07→18:48)
[2019-01-08 15:09] VITALS: BP 163/77
[2019-01-08 15:13] VITALS: BP 163/77
[2019-01-08 15:21] VITALS: BP 163/77
[2019-01-08] MEDS: MORPHINE SULFATE INJ 4 MG/ML INJ 1ML IV PRN (15:27)
[2019-01-08 15:38] VITALS: BP 163/77
[2019-01-08] MEDS ORDERED: IOPAMIDOL 370 MG/ML 200 ML INFUS..BTL INJ ONE (15:47)
[2019-01-08] MEDS ORDERED: SODIUM CHLORIDE 0.9% 50ML 50 ML ONE (15:47)
--- NOTE | 2019-01-08 17:38 | History and Physical ---
CHIEF COMPLAINT: Abdominal cramping and bloody stool. HISTORY OF PRESENT ILLNESS: This is a 78-year-old white woman, who presents to [facility] with a 1-day history of worsening bilateral lower abdominal cramping, bloody stools, and body aches. The patient also complains of nausea, vomiting, diarrhea. The patient states that hematochezia began last night, but worsened today. The patient states she has never been diagnosed with sigmoid diverticulitis. In the emergency room, the patient underwent a CT of the abdomen and pelvis, which revealed findings consistent with colitis in the descending and sigmoid colon with mild adjacent fat stranding, but no associated diverticula was appreciated. The patient also was found to have diffuse hepatic steatosis. The patient had a chest x-ray done in the emergency room that revealed findings consistent with left lower lobe atelectasis. In the emergency room, the patient had white blood cell count of 19,600 with 70% segmented neutrophils. Hemoglobin 14.1 g. The patient's BUN and creatinine 16 and 0.91 respectively. The patient's potassium is 4.2. Urinalysis unremarkable. The patient was admitted for further evaluation and treatment. The patient states she did receive influenza vaccine on December 15, 2018. REVIEW OF SYSTEMS: GENERAL: Weight has been stable. She had fever and chills in last 24 hours. HEENT: No headaches, no visual changes. CARDIOVASCULAR/PULMONARY: No chest pain or shortness of breath. GI: Complains of nausea, vomiting, diarrhea since last night. States that since last night she has had a gross hematochezia. Denies any melena. : No UTIs. NEUROMUSCULAR: Complains of diffuse body aches, particularly in the legs. ALLERGIES: 1. SHELLFISH. 2. ATORVASTATIN. 3. FENOFIBRATE. 4. METHOCARBAMOL. PAST MEDICAL HISTORY: 1. Coronary artery disease (coronary stent placed in 2013). 2. Chronic bronchitis. 3. Obesity, BMI is 34. 4. Hypertriglyceridemia. 5. Restless legs syndrome. 6. Hypertensive heart disease. 7. Chronic bronchitis. 8. Hypothyroidism. 9. Lumbar disease. SURGICAL HISTORY: 1. Coronary stent placed in 2013, L4-L5 fusion in 2007. 2. L3-L4 laminectomy in March of 2016. 3. Hysterectomy in 1972. 4. Open cholecystectomy in 1972. 5. Bilateral breast lumpectomy in 1982 (benign). 6. Right knee meniscal repair in 2016. FAMILY HISTORY: Mother had coronary artery disease and type 2 diagnosis. Father of lung cancer. SOCIAL HISTORY: This woman is , lives with . She is a homemaker. No history of tobacco or alcohol use. HOME MEDICATIONS: 1. Metoprolol succinate 25 mg daily. 2. Losartan 100 mg daily. 3. Levothyroxine 100 mcg daily. 4. Dexilant 60 mg daily. 5. Vitamin B12 1000 mcg daily. 6. Pregabalin 50 mg at bedtime. 7. Cholecalciferol (vitamin D3) 2000 units daily. 8. Clopidogrel 75 mg daily. 9. Loratadine 10 mg daily. 10. Calcium with vitamin D 600 mg with 400 international units one b.i.d. 11. Multivitamin daily. PHYSICAL EXAMINATION: GENERAL: She is awake. She is alert. She is fully oriented. She is pleasant. She does appear slightly ill. Her is at bedside. VITAL SIGNS: Height 5 feet 3 inches, weight is 190 pounds, BMI 34, blood pressure 162/78, pulse 78, respiratory rate 16, temperature 97.4, and oxygen saturation 98% on room air. INTEGUMENT: Skin is warm and dry. Slight pallor, jaundice, diaphoresis. HEENT: Anicteric sclerae. Moist mucous membranes. The patient has fetid halitosis. NECK: Supple. CARDIOVASCULAR: Distant heart sounds. Regular rhythm. LUNGS: No rales, no rhonchi. ABDOMEN: Obese. She has hyperactive bowel sounds. She has tenderness on palpating the bilateral lower quadrants. No rebound or guarding. Difficult to assess for organomegaly because of the patient's body habitus. EXTREMITIES: No edema or deformity. NEUROLOGIC: Intact. DIAGNOSES: 1. Colitis. 2. Coronary artery disease (stent placed in 2013). 3. Hematochezia. PLAN: 1. We will stop clopidogrel due to the patient's hematochezia. 2. We will do a rapid influenza test to assess for any cold influenza viral to assess for any occult influenza gastrointestinal infection. 3. Intravenous antibiotics. 4. Follow white blood cell count. 5. Gentle intravenous hydration. 6. Gentle blood pressure control. I spent 35 minutes in the care of this patient. MD JESSY Esteban/JAMES /[id number]
[2019-01-08] MEDS: PREGABALIN 50 MG CAP PO SCH (18:06)
--- NOTE | 2019-01-08 19:05 | NUR ---
Bedside report given to night nurse. Patient in stable condition, no c/o pain or signs of distress at this time. All safety measures in place.
[2019-01-08 20:02] VITALS: BP 153/66
[2019-01-08 21:00] VITALS: BP 153/66
[2019-01-08] MEDS ORDERED: METOPROLOL SUCCINATE 25 MG TAB XL PO SCH (21:00)
[2019-01-08] MEDS: METOPROLOL SUCCINATE 50 MG TAB XL PO SCH (21:11)
[2019-01-08] MEDS: ONDANSETRON HCL INJ 2MG/ML 2ML 2 MG/ML VIAL IV PRN (21:12)
[2019-01-09] VITALS (9 sets, daily range): BP systolic 110–179; BP diastolic 51–84
[2019-01-09] MEDS: METRONIDAZOLE 500MG/NS 100ML 100 ML IV SCH ×4 (01:09→17:27)
--- NOTE | 2019-01-09 02:30 | Consultation ---
DATE OF CONSULTATION: 01/08/2019 Consult Note REASON FOR CONSULT: Lower abdominal cramping, diarrhea, blood-tinged stool multiple times since yesterday. HISTORY OF PRESENTING ILLNESS: This is a 78-year-old very pleasant white woman with past medical history of coronary artery disease status post PCI with stent, hypertension, hypothyroidism, chronic backache secondary to lumbar disease, got admitted with acute onset of nausea and vomiting 5-6 hours after eating lunch in a [place] restaurant yesterday. She got again very sick at night and started having diarrhea. Few of the stools initially were without any blood. But subsequent bowel movements were very loose and tinged with blood. Since the diarrhea persisted, therefore her brought her to the hospital. Here, she was noted to be afebrile, hemodynamically stable. Blood count revealed leukocytosis with white count of 19.65 with some left shift. Chemistries were noted normal. CT scan of the abdomen and pelvis was done with intravenous contrast, showed mild thickening of the descending and sigmoid colon with area of mild adjacent fat stranding, not associated with diverticula. This is suggestive of either infectious or inflammatory or ischemic etiologies. She got admitted. Currently getting IV fluid and empiric intravenous levofloxacin and metronidazole. GI has been consulted for further evaluation and recommendations. The patient denies any extraintestinal complaints. REVIEW OF SYSTEMS: A 12-point system reviewed, symptomatology is limited to GI system. PAST MEDICAL HISTORY: Hypertriglyceridemia, restless legs syndrome, hypertension, spinal degenerative disk disease, recurrent bronchitis, coronary artery disease. PAST SURGICAL HISTORY: PCI with coronary stent, spinal surgery with laminectomy in L4-5 and fusion, hysterectomy, open cholecystectomy, bilateral breast lumpectomy, right meniscal tear repair. FAMILY HISTORY: Negative for any GI or ITEM REPAIR MANAGER malignancies. Diabetes and hypertension run in the family. SOCIAL HISTORY: , lives with her . No smoking, alcohol, or any illicit drug use. ALLERGIES: SHELLFISH, ATORVASTATIN, FENOFIBRATE, METHOCARBAMOL. INPATIENT MEDICATIONS: Calcium with vitamin D, clopidogrel, vitamin B12, Dexilant, levothyroxine, loratadine, losartan/hydrochlorothiazide, lubiprostone, metoprolol, pregabalin, coenzyme Q10, intravenous metronidazole as well as levofloxacin along with other medications. PHYSICAL EXAMINATION: VITAL SIGNS: Temperature 97.5, pulse 77, respirations 18, blood pressure 153/66, oxygen saturation 94% on room air. GENERAL: Not in any acute distress. Obese body habitus. HEENT: Oral mucosa is moist. Anicteric sclerae. CVS: S1, S2 regular. LUNGS: Bilaterally grossly clear. ABDOMEN: Soft. Left lower quadrant tenderness on deep palpation without rebound, rigidity, or guarding. Positive bowel sounds. EXTREMITIES: Warm. No leg edema. LABORATORY DATA: Sodium 137, potassium 4.2, chloride 104, bicarb 22, BUN 16, creatinine 0.91, glucose 145. Liver enzymes normal. WBC 19.65, hemoglobin 14.1, hematocrit 43.8, MCV 85.5, and platelet count 338. PT 13, INR 0.93, PTT 23. Influenza antigen negative. Urinalysis negative. CT scan of the abdomen and pelvis with IV contrast showed: 1. Mild thickening of the descending and sigmoid colon with areas of mild adjacent fat stranding, not associated with diverticula. This is nonspecific and can be seen with colitis of infectious/inflammatory/ischemic etiologies. 2. Mild sigmoid diverticulosis without associated wall thickening or inflammatory changes to suggest diverticulitis. 3. Diffuse hepatic steatosis. IMPRESSION: Infectious colitis, less likely ischemic colitis. Certainly it is not inflammatory colitis. PLAN: Supportive care, IV fluid, empiric IV antibiotic. Allow oral diet. The patient's diarrhea has already improved. The frequency has significantly gone down. Stool has also started getting firmer. The patient has had a colonoscopy by Dr. Kerns approximately 5 years ago. It is a self-limiting colitis. Therefore, the patient can be discharged home tomorrow if tolerates oral diet without any further increase in the frequency of diarrhea. I thank Dr. Eisenberg for allowing me to participate in the care of this patient. Nicola Sims MD SA/JAMES /[id number]
[2019-01-09] MEDS: LEVOTHYROXINE SODIUM 100 MCG TAB PO SCH (05:20)
[2019-01-09] MEDS: ONDANSETRON HCL INJ 2MG/ML 2ML 2 MG/ML VIAL IV PRN ×2 (05:20→14:07)
[2019-01-09 05:25] LABS: BASOPHILS % 0.1 % (0.0-1.0); EOSINOPHILS # (AUTO) 0.1 (0.0-0.4); EOSINOPHILS % 0.5 % (0.0-6.0); HEMATOCRIT 39.4 % (34.2-44.1); HEMOGLOBIN 12.2 g/dL (12.0-16.0); LYMPHOCYTES # (AUTO) 1.6 (1.0-3.2); LYMPHOCYTES % 7.5 % (18.0-39.1); MEAN CORPUSCULAR HEMOGLOBIN 27.3 pg (28-32); MEAN CORPUSCULAR VOLUME 88.1 fL (81-99); MONOCYTES # (AUTO) 0.7 (0.2-0.8); MONOCYTES % 3.2 % (4.4-11.3); NEUTROPHILS # (AUTO) 18.9 (2.1-6.9); NEUTROPHILS % 87.7 % (38.7-80.0); PLATELET COUNT 193 x10e3/uL (140-360); RED BLOOD COUNT 4.47 x10e6/uL (3.6-5.1); RED CELL DISTRIBUTION WIDTH 12.9 % (11.7-14.4)
[2019-01-09 05:52] LABS: ALANINE AMINOTRANSFERASE 22 IU/L (0-55); ALBUMIN 2.9 g/dL (3.5-5.0); ALKALINE PHOSPHATASE 83 IU/L (40-150); BLOOD UREA NITROGEN 12 mg/dL (7-26); BUN/CREATININE RATIO 16 (6-25); CALCIUM 8.7 mg/dL (8.4-10.2); CARBON DIOXIDE 21 mmol/L (22-29); CHLORIDE 111 mmol/L (98-107); CREATININE, SERUM 0.76 mg/dL (0.57-1.11); EST GLOMERULAR FILTRATION RATE > 60 ML/MIN (60-); GLUCOSE 141 mg/dL (74-118); SODIUM 140 mmol/L (136-145)
--- NOTE | 2019-01-09 07:28 | NUR ---
Received bedside report from night nurse. Patient resting in bed, no signs of distress or c/o pain at this time. All safety measures in place. Will continue to monitor.
[2019-01-09 08:50] LABS: ANION GAP 12.5 mmol/L (8-16); POTASSIUM 4.5 mmol/L (3.5-5.1)
[2019-01-09] MEDS ORDERED: LOSARTAN PO SCH (09:00)
[2019-01-09] MEDS ORDERED: [UNRECOGNIZED DRUG - OTHER] PO SCH (09:00)
[2019-01-09] MEDS ORDERED: HYDROCHLOROTHIAZIDE PO SCH (09:00)
[2019-01-09] MEDS: LOSARTAN POTASSIUM 25 MG TAB PO SCH (09:13)
[2019-01-09] MEDS: PREGABALIN 50 MG CAP PO SCH ×2 (09:13→17:27)
[2019-01-09] MEDS: HYDROCHLOROTHIAZIDE 25 MG TAB PO SCH (09:13)
[2019-01-09] MEDS ORDERED: DICYCLOMINE HCL 20 MG TAB PO NR (11:45)
[2019-01-09] MEDS ORDERED: METOPROLOL SUCCINATE 50 MG TAB XL PO NR (11:45)
[2019-01-09] MEDS: CIPROFLOXACIN 400 MG/D5W 200ML 200 ML IV SCH ×2 (11:49→23:27)
[2019-01-09] MEDS: MORPHINE SULFATE INJ 4 MG/ML INJ 1ML IV PRN (14:07)
[2019-01-09] MEDS ORDERED: SODIUM CHLORIDE 0.9% 250ML 250 ML ONE (17:23)
--- NOTE | 2019-01-09 18:51 | NUR ---
Bedside report given to night nurse. Patient resting in bed, no s/s of distress or c/o pain at this time. All safety measures in place. Family at bedside.
[2019-01-09] MEDS: METOPROLOL SUCCINATE 50 MG TAB XL PO SCH (20:34)
--- NOTE | 2019-01-09 22:44 | Progress Note ---
DATE: 01/09/2019 SUBJECTIVE: The patient reports no BM today. Lower abdominal cramping has improved. Tolerating full liquid diet. REVIEW OF SYSTEMS: GENERAL: No fever or chills. CVS: No chest pain or palpitations. RESPIRATORY: No cough or expectoration. MEDICATIONS: Reviewed as per JUN. She is on intravenous metronidazole and intravenous ciprofloxacin along with outpatient medications. PHYSICAL EXAMINATION: VITAL SIGNS: Temperature 98.6, pulse 78, respirations 17, blood pressure 133/51, oxygen saturation 94% on room air. GENERAL: Not in any acute distress. Obese body habitus. HEENT: Oral mucosa is moist. ABDOMEN: Soft, nondistended. Mild lower quadrant tenderness. No rebound, rigidity, or guarding. Positive bowel sounds. EXTREMITIES: Warm. LABORATORY DATA: Hemoglobin 12.2, down from 14.1, WBC has gone up to 21.53 from 19.65, hematocrit 39.4, and platelet count 193. Electrolytes normal. PT 13, INR 0.93. ASSESSMENT: Infectious colitis, resolving. PLAN: Supportive care, IV fluid, IV antibiotic. Advance the diet to soft, low residue food from tomorrow. Nicola Sims MD SA/JAMES /[id number]
[2019-01-10] VITALS (8 sets, daily range): BP systolic 133–157; BP diastolic 57–79
--- NOTE | 2019-01-10 02:00 | NUR ---
pt iv infiltrated, iv removed, new iv started to left hand 20g
[2019-01-10] MEDS: METRONIDAZOLE 500MG/NS 100ML 100 ML IV SCH ×5 (02:14→22:54)
[2019-01-10] MEDS: LEVOTHYROXINE SODIUM 100 MCG TAB PO SCH (05:30)
[2019-01-10 06:24] LABS: BASOPHILS # (AUTO) 0.1 (0.0-0.1); BASOPHILS % 0.6 % (0.0-1.0); EOSINOPHILS # (AUTO) 0.5 (0.0-0.4); EOSINOPHILS % 1.9 % (0.0-6.0); HEMATOCRIT 38.2 % (34.2-44.1); HEMOGLOBIN 11.9 g/dL (12.0-16.0); LYMPHOCYTES # (AUTO) 5.2 (1.0-3.2); LYMPHOCYTES % 21.6 % (18.0-39.1); MEAN CORPUSCULAR HEMOGLOBIN 27.5 pg (28-32); MEAN CORPUSCULAR HGB CONC 31.2 g/dL (31-35); MEAN CORPUSCULAR VOLUME 88.2 fL (81-99); MONOCYTES # (AUTO) 1.5 (0.2-0.8); MONOCYTES % 6.1 % (4.4-11.3); NEUTROPHILS # (AUTO) 16.5 (2.1-6.9); PLATELET COUNT 257 x10e3/uL (140-360); RED BLOOD COUNT 4.33 x10e6/uL (3.6-5.1); RED CELL DISTRIBUTION WIDTH 13.2 % (11.7-14.4)
[2019-01-10 06:46] LABS: ALBUMIN 2.9 g/dL (3.5-5.0); ALBUMIN/GLOBULIN RATIO 1.1 (0.8-2.0); ANION GAP 11.4 mmol/L (8-16); CALCIUM 8.9 mg/dL (8.4-10.2); CREATININE, SERUM 0.93 mg/dL (0.57-1.11); POTASSIUM 4.4 mmol/L (3.5-5.1)
--- NOTE | 2019-01-10 07:00 | NUR ---
BEDSIDE SHIFT REPORT FROM TELECOMMUNICATIONS SPECIALIST RN. PT DENIES NEEDS AT THIS TIME.
[2019-01-10] MEDS: PREGABALIN 50 MG CAP PO SCH ×2 (09:06→17:55)
[2019-01-10] MEDS: LOSARTAN POTASSIUM 25 MG TAB PO SCH (09:06)
[2019-01-10] MEDS: HYDROCHLOROTHIAZIDE 25 MG TAB PO SCH (09:06)
[2019-01-10] MEDS: CIPROFLOXACIN 400 MG/D5W 200ML 200 ML IV SCH (10:57)
[2019-01-10] MEDS ORDERED: ACETAMINOPHEN 325 MG TAB PO PRN (11:15)
[2019-01-10 14:55] LABS: WBC,FECAL (FECAL LACTOFERRIN) POSITIVE (NEGATIVE)
--- NOTE | 2019-01-10 20:19 | NUR ---
THIS NURSE SPOKE TO DR. BARNEY PER DR. GARCES REQUEST. DR. BARNEY TOLD THIS NURSE HE HAS ALREADY CLEARED PT AND WAS NOT CONCERNED WITH LABS. DR. BARNEY WENT TO SEE PT AND CAME BACK TO THIS NURSE TO ORDER CONSULT FOR DR. LANDRUM BECAUSE OF PT'S ABDOMINAL TENDERNESS.
--- NOTE | 2019-01-10 20:44 | NUR ---
CONSULT CALLED IN TO DR. LANDRUM
[2019-01-10] MEDS: METOPROLOL SUCCINATE 50 MG TAB XL PO SCH (20:46)
--- NOTE | 2019-01-10 20:53 | NUR ---
SPOKE WITH DR LANDRUM REGARDING PATIENT'S ABD TENDERNESS AND ELEVATED WBC COUNT. OK TO SEE PATIENT TOMORROW.
[2019-01-10] MEDS: SODIUM CHLORIDE 0.9% 1000ML 1,000 ML IV SCH (22:54)
--- NOTE | 2019-01-11 00:14 | Progress Note ---
DATE: 01/10/2019 SUBJECTIVE: The patient reports lower quadrant pain, she has had a few loose stools, one of them was mixed with blood. REVIEW OF SYSTEMS: GENERAL: Low-grade fever. No chills. CVS: No chest pain or palpitation. RESPIRATORY: No cough or expectoration. MEDICATION: Pregabalin 50 mg twice daily, metronidazole 250 mg IV q.6 hours, ciprofloxacin 400 mg daily, hydrochlorothiazide 12.5 mg daily, losartan 50 mg daily, levothyroxine 100 mcg daily, metoprolol 50 mg daily, morphine 4 mg IV q.4 hours as needed, Zofran 4 mg IV q.4 hours as needed, levofloxacin 500 mg IV daily, acetaminophen 650 mg daily every 4 hours as needed. PHYSICAL EXAMINATION: VITAL SIGNS: Temperature 98.5, pulse 72, respiration 14, blood pressure 133/64, oxygen saturation 97% on room air. GENERAL: Obese body habitus. HEENT: Oral mucosa is moist. Anicteric sclerae. ABDOMEN: Soft. Left lower quadrant tenderness on mild palpation without rebound, rigidity, or guarding. Positive bowel sounds. LABORATORY DATA: Sodium 140, potassium 4.4, chloride 108, bicarb 25, BUN 14, creatinine 0.93. Liver enzymes normal. WBC has gone to 23.91, hemoglobin 11.9, hematocrit 38.2, platelet count 257. PT 13, INR 0.93. A stool C diff is pending. IMPRESSION: Persistence of left lower quadrant pain, initially it was thought that infective colitis should be self-limiting, but it seems like picture is more of ischemic colitis. White count is rising. Left lower quadrant tenderness remains persistent. PLAN: The patient is on levofloxacin as well as ciprofloxacin, therefore I will discontinue ciprofloxacin. There is no need to be top keep the patient on 2 quinolones. Gentle IV fluid hydration. Continue intravenous metronidazole. Surgery consult to evaluate for colonic ischemia to maintain supportive care and follow up stool for C diff. Nicola Sims MD SA/JAMES /[id number]
[2019-01-11 01:12] VITALS: BP 152/55
[2019-01-11 05:27] VITALS: BP 133/56
[2019-01-11] MEDS: LEVOTHYROXINE SODIUM 100 MCG TAB PO SCH (06:00)
[2019-01-11] MEDS: METRONIDAZOLE 500MG/NS 100ML 100 ML IV SCH ×2 (06:00→12:00)
[2019-01-11] MEDS: SODIUM CHLORIDE 0.9% 1000ML 1,000 ML IV SCH (06:00)
[2019-01-11 06:02] LABS: BASOPHILS # (AUTO) 0.1 (0.0-0.1); BASOPHILS % 0.7 % (0.0-1.0); EOSINOPHILS # (AUTO) 0.7 (0.0-0.4); EOSINOPHILS % 4.6 % (0.0-6.0); HEMATOCRIT 36.7 % (34.2-44.1); HEMOGLOBIN 11.4 g/dL (12.0-16.0); LYMPHOCYTES # (AUTO) 3.6 (1.0-3.2); LYMPHOCYTES % 25.2 % (18.0-39.1); MEAN CORPUSCULAR HEMOGLOBIN 27.1 pg (28-32); MEAN CORPUSCULAR HGB CONC 31.1 g/dL (31-35); MEAN CORPUSCULAR VOLUME 87.2 fL (81-99); NEUTROPHILS # (AUTO) 8.8 (2.1-6.9); NEUTROPHILS % 61.7 % (38.7-80.0); PLATELET COUNT 236 x10e3/uL (140-360); RED BLOOD COUNT 4.21 x10e6/uL (3.6-5.1); RED CELL DISTRIBUTION WIDTH 13.2 % (11.7-14.4)
[2019-01-11 06:29] LABS: ALANINE AMINOTRANSFERASE 17 IU/L (0-55); ALBUMIN 2.7 g/dL (3.5-5.0); ALBUMIN/GLOBULIN RATIO 1.1 (0.8-2.0); ALKALINE PHOSPHATASE 74 IU/L (40-150); ANION GAP 10.1 mmol/L (8-16); BLOOD UREA NITROGEN 15 mg/dL (7-26); BUN/CREATININE RATIO 18 (6-25); CALCIUM 8.6 mg/dL (8.4-10.2); CARBON DIOXIDE 26 mmol/L (22-29); CHLORIDE 107 mmol/L (98-107); CREATININE, SERUM 0.84 mg/dL (0.57-1.11); EST GLOMERULAR FILTRATION RATE > 60 ML/MIN (60-); GLUCOSE 113 mg/dL (74-118); POTASSIUM 4.1 mmol/L (3.5-5.1); SODIUM 139 mmol/L (136-145)
[2019-01-11 08:00] VITALS: BP 171/78
[2019-01-11] MEDS: LOSARTAN POTASSIUM 25 MG TAB PO SCH (09:53)
[2019-01-11] MEDS: PREGABALIN 50 MG CAP PO SCH (09:55)
[2019-01-11] MEDS: HYDROCHLOROTHIAZIDE 25 MG TAB PO SCH (09:55)
[2019-01-11 10:02] VITALS: BP 171/78
[2019-01-11 12:00] VITALS: BP 147/75
[2019-01-11] MEDS ORDERED: ONDANSETRON HCL 4 MG ORAL DISINTEGRATING TAB PO PRN (12:15)
--- NOTE | 2019-01-11 12:20 | NUR ---
IMM letter delivered and explained to pt. She verbalized understanding. Stated she is ready to go home. Signed copy placed in chart. Copy to pt
--- NOTE | 2019-01-11 12:41 | Discharge Summary ---
ADMIT DIAGNOSES: 1. Left-sided colitis. 2. Coronary artery disease (coronary stent placement in 2013). 3. Hypertensive heart disease. 4. Chronic constipation. 5. Hematochezia. DISCHARGE DIAGNOSES: 1. Left-sided colitis, resolving. 2. Coronary artery disease (stent placed in 2013). 3. Hypertensive heart disease. 4. Chronic constipation. 5. Fatty liver disease. 6. Hematochezia, resolved. HOSPITAL COURSE: This is a 78-year-old white woman, who was initially admitted to [facility] with hematochezia and left-sided colitis, but it was felt that the hematochezia was secondary to left-sided colitis. The patient improved clinically with intravenous ciprofloxacin and metronidazole. The patient was seen by gastrologist, namely Dr. Nicola Sims. The patient's white blood cell count did get as high as 23,900 with 69% segmenters. On day of discharge, CBC, white blood cell count 14,200 with 61% segmenters. The patient was found to have Hemoccult-positive stools on admission. The stool lactoferrin was also positive during this hospitalization. The stool calprotectin was still pending on discharge. The patient had a Clostridium difficile toxin screen, but the patient's stool was also sent for Clostridium difficile toxin A and B antigen, but the results were still pending on admission. The patient was screen for influenza type A and B antigen, and they were negative during this hospital stay. On admission, the patient underwent a CT of the abdomen and pelvis, which revealed mild thickening of the descending and sigmoid colon with areas of mild adjacent fat stranding. The radiologist stated that there was mild sigmoid diverticulosis, but no obvious wall thickening or inflammatory changes to suggest diverticulitis. The CT of the abdomen and pelvis also revealed diffuse hepatic steatosis. The patient's hospitalization was unremarkable. On the day of discharge, she was tolerating a full liquid diet. The patient stated she felt much improved on the day of discharge. DISCHARGE MEDICATIONS: 1. Metronidazole 5 mg p.o. t.i.d. for 11 more days. 2. Ciprofloxacin 500 mg p.o. b.i.d. for 11 more days. 3. Cholestyramine (Questran) 4 g daily. 4. Hydrochlorothiazide 12.5 mg daily. 5. Pregabalin 50 mg b.i.d. 6. Losartan 50 mg daily. 7. Levothyroxine 100 mcg daily. 8. Metoprolol succinate 50 mg at bedtime. FOLLOWUP INSTRUCTIONS: The patient was instructed to follow up with her primary care physician, namely myself, Dr. Nacho Eisenberg within next 10 to 14 days. I did inform the patient that if she does not improve clinically after being treated as an outpatient, then she will most likely be referred to a local general surgeon. MD JESSY Esteban/JAMES /[id number] cc: Nicola Sims MD
[2019-01-11 13:13] LABS: C DIFFICILE TOXIN A&B AMP PROB NEGATIVE (NEGATIVE)
== END 2019-01-11 15:12 | disposition home or self-care (01) | DRG 392 ==
LOC: ER 09:28 → ERHOLD 13:19 → MED/SURG2 14:46
PROVIDERS: ADMIT Internal Medicine; ATTEND Internal Medicine
DX: A09 Infectious gastroenteritis and colitis, unspecified (principal); K92.1 Melena; I25.10 Atherosclerotic heart disease of native coronary artery without angina pectoris; Z95.5 Presence of coronary angioplasty implant and graft; I11.9 Hypertensive heart disease without heart failure; K59.09 Other constipation; K76.0 Fatty (change of) liver, not elsewhere classified
CPT/HCPCS: 36415; 71045; 74177; 80053; 81001; 82270; 82550; 82553; 83630; 83993; 84484; 85025; 85610; 85730; 86850; 86900; 87400; 87493; 93005; 96361; 99284; J0500; J1200; J2270; J2405; J2930; J7030; J7050; Q9967